=== PATIENT | male | born 1965 | race Two or more races ===

== ENCOUNTER 2023-01-13 21:59 | Inpatient (IN) | payer MEDICAID ==
[~2023-01-13] VITALS: Ht 165.1 cm; Wt 70.3 kg
[~2023-01-13 21:59] MED LIST: ACET1TAB23 PO; ACET500C4 PO; AMOX500C2 PO; ESOM20CA PO; IBUP-1955 PO; NAPR-1192 PO; RISP0.5T65 PO; ZOLP5TAB8 PO
[2023-01-13] MEDS ORDERED: MORPHINE SULFATE INJ 4 MG/ML DISP.SYRIN ONE (22:28)
[2023-01-13] MEDS ORDERED: ONDANSETRON HCL/PF 4 MG/2 ML VIAL ONE (22:28)
[2023-01-13] MEDS ORDERED: ONDANSETRON HCL/PF 4 MG/2 ML VIAL IVP ONE (22:30)
[2023-01-13] MEDS ORDERED: MORPHINE SULFATE INJ 2 MG/ML DISP.SYRIN IV ONE (22:30)
[2023-01-13] MEDS ORDERED: IV NS 0.9% 1,000 ML BAG IV ONE (22:30)
[2023-01-13 22:51] LABS: BASOPHILS % (AUTO) 0.1 % (0.0-2.0); EOSINOPHILS # (AUTO) 0.2 K/uL (0.0-0.7); EOSINOPHILS % (AUTO) 1.3 % (0.0-6.0); HEMATOCRIT 42 % (39-51); HEMOGLOBIN 13.6 g/dL (13.5-17.5); LYMPHOCYTES % (AUTO) 9.2 % (20.0-44.0); MEAN CORPUSCULAR HEMOGLOBIN 30 PG (26.0-33.0); MEAN CORPUSCULAR HGB CONC 33 g/dl (31.0-36.0); MEAN CORPUSCULAR VOLUME 91 fL (80-96); MONOCYTES # (AUTO) 0.5 K/uL (0.1-1.30); MONOCYTES % (AUTO) 4.5 % (2.0-12.0); NEUTROPHILS # (AUTO) 9.6 K/uL (1.8-8.9); NEUTROPHILS % (AUTO) 84.9 % (43.0-81.0); PLATELET COUNT (AUTO) 151 K/uL (150-450); RED BLOOD CELL COUNT(AUTO) 4.61 MIL/uL (4.5-6.0); RED CELL DISTRIBUTION WIDTH 16.1 % (11.5-15.0); WHITE BLOOD COUNT (AUTO) 11.3 K/uL (4.3-11.0)
[2023-01-13 23:06] LABS: CALCIUM, SERUM 8.8 mg/dL (8.5-10.1); CARBON DIOXIDE 24 mmol/L (21-32); CHLORIDE 102 mmol/L (98-107); CREATININE 0.7 mg/dL (0.6-1.3); GLUCOSE 145 mg/dL (74-106); SODIUM SERUM 136 mmol/L (136-145); UREA NITROGEN, BLOOD 16 mg/dL (7-18)
[2023-01-13 23:14] LABS: ALANINE AMINOTRANSFERASE 46 U/L (12-78); ALBUMIN 3.6 g/dL (3.4-5.0); ALKALINE PHOSPHATASE 232 U/L (46-116); ASPARTATE AMINOTRANSFERASE 49 U/L (15-37); BILIRUBIN,DIRECT 0.3 mg/dL (0.0-0.2); BILIRUBIN,TOTAL 0.6 mg/dL (0.2-1.0); LIPASE 52 U/L (16-77); TOTAL PROTEIN, SERUM 8.8 g/dL (6.4-8.2)
[2023-01-14 01:47] LABS: APPEARANCE,URINE CLEAR (CLEAR); BILIRUBIN,URINE NEGATIVE (NEGATIVE); BLOOD, URINE NEGATIVE Ery/uL (NEGATIVE); COLOR,URINE YELLOW (YELLOW); KETONES,URINE NEGATIVE (NEGATIVE); LEUKOCYTE ESTERASE ,URINE NEGATIVE (NEGATIVE); NITRITE, URINE NEGATIVE (NEGATIVE); PH,URINE 5.5 (5.0-8.0); PROTEIN,URINE NEGATIVE (NEGATIVE); UGLUCOSE NEGATIVE (NEGATIVE)
[2023-01-14] MEDS ORDERED: MAGNESIUM HYDROXIDE 30 ML UDC PO PRN (03:30)
[2023-01-14] MEDS ORDERED: MORPHINE SULFATE INJ 2 MG/ML DISP.SYRIN IV PRN (03:30)
[2023-01-14] MEDS: METOCLOPRAMIDE HCL 10 MG/2 ML VIAL IV SCH ×2 (03:30→10:05)
[2023-01-14] MEDS ORDERED: ACETAMINOPHEN 325 MG TABLET PO PRN (03:30)
[2023-01-14] MEDS ORDERED: ONDANSETRON HCL/PF 4 MG/2 ML VIAL IVP PRN (03:30)
[2023-01-14] MEDS ORDERED: Z GUARD REMEDY 4 OZ OINT TP PRN (03:30)
[2023-01-14] MEDS ORDERED: MORPHINE SULFATE INJ 2 MG/ML DISP.SYRIN ONE (06:07)
[2023-01-14 08:15] VITALS: BP 117/76; TEMP 97.6; O2SAT 97
[2023-01-14] MEDS: HEPARIN SODIUM, PORCINE 5000 UNITS/1 ML VIAL SQ SCH ×2 (10:04→21:35)
[2023-01-14] MEDS: PANTOPRAZOLE 40 MG VIAL IV SCH (10:04)
[2023-01-14] MEDS: IV D5/ 0.9% NACL 1,000 ML IV PRN (10:08)
[2023-01-14] MEDS ORDERED: DIATR MEGLU/DIATRIZOATE SODIUM 120 ML BOTTLE (GASTROGRAPHIN) ONE (15:24)
[2023-01-14 16:00] VITALS: BP 124/74; TEMP 98.6; O2SAT 96
[2023-01-14] MEDS ORDERED: LEVOFLOXACIN 500 MG /D5W 100ML 500 MG in PREMIX 1 EA IV SCH (16:00)
[2023-01-14] MEDS: METRONIDAZOLE 500MG/ NS 100ML 500 MG in PREMIX 1 EA IV SCH ×2 (16:32→21:21)
[2023-01-14 20:00] VITALS: BP 123/70; TEMP 98.4; O2SAT 95
[2023-01-14 23:03] VITALS: BP 123/70; TEMP 98.4; O2SAT 95
[2023-01-15] MEDS: IV D5/ 0.9% NACL 1,000 ML IV PRN (02:38)
[2023-01-15] MEDS: METRONIDAZOLE 500MG/ NS 100ML 500 MG in PREMIX 1 EA IV SCH ×2 (05:37→12:13)
[2023-01-15 07:20] LABS: BASOPHILS % (AUTO) 0.4 % (0.0-2.0); EOSINOPHILS # (AUTO) 0.1 K/uL (0.0-0.7); EOSINOPHILS % (AUTO) 1.8 % (0.0-6.0); HEMATOCRIT 38 % (39-51); HEMOGLOBIN 12.7 g/dL (13.5-17.5); LYMPHOCYTES # (AUTO) 1.8 K/uL (0.8-4.8); LYMPHOCYTES % (AUTO) 29.2 % (20.0-44.0); MEAN CORPUSCULAR HEMOGLOBIN 30 PG (26.0-33.0); MEAN CORPUSCULAR HGB CONC 33 g/dl (31.0-36.0); MEAN CORPUSCULAR VOLUME 91 fL (80-96); MONOCYTES % (AUTO) 15.6 % (2.0-12.0); NEUTROPHILS # (AUTO) 3.3 K/uL (1.8-8.9); PLATELET COUNT (AUTO) 132 K/uL (150-450); RED BLOOD CELL COUNT(AUTO) 4.23 MIL/uL (4.5-6.0); WHITE BLOOD COUNT (AUTO) 6.2 K/uL (4.3-11.0)
[2023-01-15 08:00] VITALS: BP 125/81; TEMP 98.4; O2SAT 98
[2023-01-15 08:02] LABS: ALBUMIN 2.8 g/dL (3.4-5.0); BILIRUBIN,DIRECT 0.4 mg/dL (0.0-0.2); BILIRUBIN,TOTAL 1.4 mg/dL (0.2-1.0); CREATININE 0.6 mg/dL (0.6-1.3); MAGNESIUM 2.1 mg/dL (1.8-2.4); PHOSPHORUS 2.7 mg/dL (2.5-4.9); POTASSIUM 3.5 mmol/L (3.5-5.1); TOTAL PROTEIN, SERUM 7.5 g/dL (6.4-8.2)
[2023-01-15] MEDS ORDERED: LEVO500T90 PO (08:36)
[2023-01-15] MEDS: PANTOPRAZOLE 40 MG VIAL IV SCH (10:21)
[2023-01-15] MEDS: HEPARIN SODIUM, PORCINE 5000 UNITS/1 ML VIAL SQ SCH (10:21)
[2023-01-15 16:00] VITALS: BP 110/65; TEMP 98.2; O2SAT 100
== END 2023-01-15 17:10 | disposition home or self-care (01) | DRG 248 ==
LOC: ER 22:01 → UNDOADMIN 01-14 04:39 → TRANSITION 01-14 04:39 → MED 01-14 08:04
PROVIDERS: ADMIT Internal Medicine; ATTEND Internal Medicine
DX: A04.9 Bacterial intestinal infection, unspecified (principal); K56.7 Ileus, unspecified; K74.60 Unspecified cirrhosis of liver; K29.70 Gastritis, unspecified, without bleeding; K80.20 Calculus of gallbladder without cholecystitis without obstruction; N40.0 Benign prostatic hyperplasia without lower urinary tract symptoms
CPT/HCPCS: 36415; 71045-TC; 74250-TC; 80048-TC; 80076-TC; 83690-TC; 83735-TC; 84100-TC; 84484-TC; 85025-TC; 87081-TC; A4216; A4217; A4223; C9113; G0378; J1644; J1956; J2270; J2405; J2765; J7030; J7042; Q9963

== ENCOUNTER 2023-06-23 13:28 | Emergency (ER) | payer MEDICAID ==
[~2023-06-23] VITALS: Ht 167.6 cm; Wt 64.4 kg
[~2023-06-23 13:28] MED LIST changes: -ACET1TAB23 PO; -ACET500C4 PO; -AMOX500C2 PO; -IBUP-1955 PO; +LEVO500T90 PO; -NAPR-1192 PO; -RISP0.5T65 PO; -ZOLP5TAB8 PO
[2023-06-23 13:35] VITALS: TEMP 98.4
[2023-06-23] MEDS ORDERED: ONDANSETRON 4 MG TAB.RAPDIS ONE (13:57)
[2023-06-23] MEDS: ONDANSETRON 4 MG TAB.RAPDIS SL ONE (14:00)
[2023-06-23 14:35] LABS: BASOPHILS # (AUTO) 0.2 K/uL (0.0-0.2); BASOPHILS % (AUTO) 2.9 % (0.0-2.0); EOSINOPHILS # (AUTO) 0.3 K/uL (0.0-0.7); EOSINOPHILS % (AUTO) 4.1 % (0.0-6.0); HEMATOCRIT 37 % (39-51); HEMOGLOBIN 11.5 g/dL (13.5-17.5); LYMPHOCYTES # (AUTO) 2.6 K/uL (0.8-4.8); LYMPHOCYTES % (AUTO) 42.1 % (20.0-44.0); MEAN CORPUSCULAR HEMOGLOBIN 22 PG (26.0-33.0); MEAN CORPUSCULAR HGB CONC 31 g/dl (31.0-36.0); MEAN CORPUSCULAR VOLUME 70 fL (80-96); MONOCYTES # (AUTO) 0.8 K/uL (0.1-1.30); MONOCYTES % (AUTO) 12.8 % (2.0-12.0); NEUTROPHILS # (AUTO) 2.3 K/uL (1.8-8.9); NEUTROPHILS % (AUTO) 38.1 % (43.0-81.0); PLATELET COUNT (AUTO) 359 K/uL (150-450); RED BLOOD CELL COUNT(AUTO) 5.35 MIL/uL (4.5-6.0); RED CELL DISTRIBUTION WIDTH 32.2 % (11.5-15.0); WHITE BLOOD COUNT (AUTO) 6.1 K/uL (4.3-11.0)
[2023-06-23 15:03] LABS: CARBON DIOXIDE 23 mmol/L (21-32); CHLORIDE 101 mmol/L (98-107); CREATININE 0.9 mg/dL (0.6-1.3); GLUCOSE 139 mg/dL (74-106); POTASSIUM 3.9 mmol/L (3.5-5.1); SODIUM SERUM 134 mmol/L (136-145); UREA NITROGEN, BLOOD 11 mg/dL (7-18)
[2023-06-23 15:10] LABS: ALANINE AMINOTRANSFERASE 71 U/L (12-78); ALBUMIN 3.4 g/dL (3.4-5.0); ASPARTATE AMINOTRANSFERASE 45 U/L (15-37); BILIRUBIN,DIRECT 0.4 mg/dL (0.0-0.2); BILIRUBIN,TOTAL 0.9 mg/dL (0.2-1.0)
[2023-06-23] MEDS: IV NS 0.9% 1,000 ML IV ONE (15:50)
[2023-06-23 16:12] LABS: APPEARANCE,URINE CLEAR (CLEAR); BILIRUBIN,URINE NEGATIVE (NEGATIVE); BLOOD, URINE NEGATIVE Ery/uL (NEGATIVE); COLOR,URINE YELLOW (YELLOW); KETONES,URINE NEGATIVE (NEGATIVE); LEUKOCYTE ESTERASE ,URINE NEGATIVE (NEGATIVE); NITRITE, URINE NEGATIVE (NEGATIVE); PROTEIN,URINE NEGATIVE (NEGATIVE); UGLUCOSE NEGATIVE (NEGATIVE); UROBILINOGEN,URINE 0.2 EU/dL (0.2)
[2023-06-23] MEDS ORDERED: ONDA4TAB11 PO (16:24)
[2023-06-23] MEDS ORDERED: DICY20TA11 PO (16:24)
[2023-06-23 17:03] LABS: ALKALINE PHOSPHATASE 222 U/L (46-116)
[2023-06-23 18:04] VITALS: BP 130/68; O2SAT 98
[2023-06-23 18:18] LABS: ANISOCYTOSIS 1+; BAND % (MANUAL) 1 % (0.0-5.0); BASOPHILS % (MANUAL) 1 % (0.0-2.0); EOSINOPHILS % (MANUAL) 4 % (0-4); LYMPHOCYTES % (MANUAL) 31 % (16-48); MONOCYTES % (MANUAL) 9 % (0-11.0); NEUTROPHILS % (MANUAL) 54 (42-76); PLATELET ESTIMATE ADEQUATE
[2023-06-23 18:19] LABS: TARGET CELLS RARE; TEAR DROP CELLS RARE
[2023-06-27] MEDS ORDERED: RIFA550T PO (08:49)
[2023-06-27] MEDS ORDERED: LACT10SO58 PO (08:49)
== END 2023-06-23 17:15 | disposition home or self-care (01) ==
LOC: ER 13:38
DX: R53.1 Weakness (principal); R11.0 Nausea; F41.9 Anxiety disorder, unspecified; G47.00 Insomnia, unspecified; Z87.09 Personal history of other diseases of the respiratory system; Z87.19 Personal history of other diseases of the digestive system; Z86.79 Personal history of other diseases of the circulatory system
CPT/HCPCS: 99284; 96360; 93005; 85025; 80048; 80076; 81003; 36415; 84484; 85007; J7030; Q0162

== ENCOUNTER 2023-06-24 07:59 | Inpatient (IN) | payer MEDICAID ==
[~2023-06-24] VITALS: Ht 165.1 cm; Wt 59.4 kg
[~2023-06-24 07:59] MED LIST changes: +DICY20TA11 PO; +ONDA4TAB11 PO
[2023-06-24] MEDS: IV NS 0.9% 1,000 ML BAG IV ONE (08:16)
[2023-06-24 08:45] LABS: BASOPHILS # (AUTO) 0.1 K/uL (0.0-0.2); BASOPHILS % (AUTO) 1.4 % (0.0-2.0); EOSINOPHILS # (AUTO) 0.3 K/uL (0.0-0.7); EOSINOPHILS % (AUTO) 3.6 % (0.0-6.0); HEMATOCRIT 37 % (39-51); HEMOGLOBIN 11.4 g/dL (13.5-17.5); LYMPHOCYTES # (AUTO) 2.1 K/uL (0.8-4.8); LYMPHOCYTES % (AUTO) 26.2 % (20.0-44.0); MEAN CORPUSCULAR HEMOGLOBIN 22 PG (26.0-33.0); MEAN CORPUSCULAR HGB CONC 31 g/dl (31.0-36.0); MEAN CORPUSCULAR VOLUME 69 fL (80-96); MONOCYTES # (AUTO) 0.8 K/uL (0.1-1.30); MONOCYTES % (AUTO) 10.2 % (2.0-12.0); NEUTROPHILS # (AUTO) 4.6 K/uL (1.8-8.9); NEUTROPHILS % (AUTO) 58.6 % (43.0-81.0); PLATELET COUNT (AUTO) 369 K/uL (150-450); RED CELL DISTRIBUTION WIDTH 31.6 % (11.5-15.0); WHITE BLOOD COUNT (AUTO) 7.8 K/uL (4.3-11.0)
[2023-06-24 08:57] LABS: INR 1.26 (0.91-1.10); PARTIAL THROMBOPLASTIN TIME 33.1 SEC (24.3-34.3); PROTHROMBIN TIME 13.2 SECS (9.2-11.1)
[2023-06-24 09:01] LABS: SERUM AMMONIA 106 umol/L (11-32)
[2023-06-24 09:08] LABS: ALANINE AMINOTRANSFERASE 64 U/L (12-78); ALBUMIN 3.3 g/dL (3.4-5.0); ALKALINE PHOSPHATASE 188 U/L (46-116); ASPARTATE AMINOTRANSFERASE 44 U/L (15-37); BILIRUBIN,DIRECT 0.4 mg/dL (0.0-0.2); CALCIUM, SERUM 8.7 mg/dL (8.5-10.1); CARBON DIOXIDE 20 mmol/L (21-32); CHLORIDE 102 mmol/L (98-107); CREATININE 0.8 mg/dL (0.6-1.3); GLUCOSE 110 mg/dL (74-106); POTASSIUM 4.1 mmol/L (3.5-5.1); SODIUM SERUM 134 mmol/L (136-145); TOTAL PROTEIN, SERUM 9.8 g/dL (6.4-8.2); UREA NITROGEN, BLOOD 17 mg/dL (7-18)
[2023-06-24 09:15] LABS: THYROID STIMULATING HORMONE 1.425 uIU/mL (0.358-3.74)
[2023-06-24 09:19] LABS: ACETAMINOPHEN <10 ug/ml (10-30); ALCOHOL, BLOOD < 3 mg/dL (0-10); SALICYLATE < 2.3 mg/dL (2.8-20.0)
[2023-06-24 09:20] LABS: LACTIC ACID 2.1 mmol/L (0.4-2.0)
[2023-06-24] MEDS ORDERED: LACTULOSE 10 G/15 ML UDC (PYXIS) ONE (09:40)
[2023-06-24] MEDS: LACTULOSE 10 G/15 ML UDC (PYXIS) PO ONE (09:42)
[2023-06-24 12:11] LABS: APPEARANCE,URINE Clear (CLEAR); BILIRUBIN,URINE Negative (NEGATIVE); BLOOD, URINE Negative Ery/uL (NEGATIVE); COLOR,URINE YELLOW (YELLOW); KETONES,URINE 15 mg/dL (NEGATIVE); LEUKOCYTE ESTERASE ,URINE Negative (NEGATIVE); NITRITE, URINE Negative (NEGATIVE); PROTEIN,URINE Negative (NEGATIVE); UGLUCOSE Negative (NEGATIVE); UROBILINOGEN,URINE 0.2 EU/dL (0.2)
[2023-06-24 12:21] LABS: AMPHETAMINE, URINE NEGATIVE (NEGATIVE); BARBITURATE, URINE NEGATIVE (NEGATIVE); BENZODIAZEPINE, URINE NEGATIVE (NEGATIVE); CANNABINOID, URINE NEGATIVE (NEGATIVE); COCCAINE, URINE NEGATIVE (NEGATIVE); OPIATE, URINE NEGATIVE (NEGATIVE); PHENCYCLIDINE SCREEN,URINE NEGATIVE (NEGATIVE)
[2023-06-24] MEDS: IV D5/0.45 NACL 1,000 ML IV PRN (15:11)
[2023-06-24] MEDS: Folic acid 1 MG in IV D5W 50 ML IV SCH (15:27)
[2023-06-24] MEDS: Thiamine 100 MG in IV D5W 50 ML IV SCH (15:27)
[2023-06-24] MEDS ORDERED: ACETAMINOPHEN 325 MG TABLET PO PRN (15:30)
[2023-06-24] MEDS ORDERED: ONDANSETRON HCL/PF 4 MG/2 ML VIAL IV PRN (15:30)
[2023-06-24] MEDS: LACTULOSE 10 G/15 ML UDC (PYXIS) PO SCH (15:40)
[2023-06-24] MEDS: PANTOPRAZOLE 40 MG VIAL IV SCH (15:40)
[2023-06-24 16:00] VITALS: BP 118/74; TEMP 98.4; O2SAT 99
[2023-06-24] MEDS: RIFAXIMIN 550 MG TABLET PO SCH (16:26)
[2023-06-24 20:00] VITALS: BP 101/59; TEMP 98.6; O2SAT 99
[2023-06-25] VITALS: BP_SYST 134; BP_SYST 97; BP_DIAS 63; BP_DIAS 73; TEMP 97.7; TEMP 98.6; O2SAT 100; O2SAT 97
[2023-06-25 04:00] VITALS: BP 116/78; TEMP 98.1; O2SAT 100
[2023-06-25 08:00] VITALS: BP 106/72; TEMP 98.1; O2SAT 100
[2023-06-25 08:18] LABS: BASOPHILS # (AUTO) 0.1 K/uL (0.0-0.2); BASOPHILS % (AUTO) 1.8 % (0.0-2.0); EOSINOPHILS # (AUTO) 0.4 K/uL (0.0-0.7); HEMATOCRIT 33 % (39-51); HEMOGLOBIN 10.4 g/dL (13.5-17.5); LYMPHOCYTES # (AUTO) 1.9 K/uL (0.8-4.8); LYMPHOCYTES % (AUTO) 32.6 % (20.0-44.0); MEAN CORPUSCULAR HEMOGLOBIN 22 PG (26.0-33.0); MEAN CORPUSCULAR HGB CONC 32 g/dl (31.0-36.0); MEAN CORPUSCULAR VOLUME 70 fL (80-96); MONOCYTES # (AUTO) 0.9 K/uL (0.1-1.30); MONOCYTES % (AUTO) 15.9 % (2.0-12.0); NEUTROPHILS # (AUTO) 2.5 K/uL (1.8-8.9); NEUTROPHILS % (AUTO) 42.7 % (43.0-81.0); PLATELET COUNT (AUTO) 290 K/uL (150-450); RED BLOOD CELL COUNT(AUTO) 4.67 MIL/uL (4.5-6.0); RED CELL DISTRIBUTION WIDTH 31.8 % (11.5-15.0); WHITE BLOOD COUNT (AUTO) 5.9 K/uL (4.3-11.0)
[2023-06-25 08:20] LABS: ALBUMIN 2.7 g/dL (3.4-5.0); BILIRUBIN,TOTAL 0.9 mg/dL (0.2-1.0); CALCIUM, SERUM 8.2 mg/dL (8.5-10.1); CREATININE 0.8 mg/dL (0.6-1.3); POTASSIUM 3.8 mmol/L (3.5-5.1); TOTAL PROTEIN, SERUM 8.5 g/dL (6.4-8.2)
[2023-06-25 09:05] LABS: THYROID STIMULATING HORMONE 1.533 uIU/mL (0.358-3.74)
[2023-06-25] MEDS: THIAMINE HCL 100 MG TABLET PO SCH (12:29)
[2023-06-25] MEDS: FOLIC ACID 1 MG TABLET PO SCH (12:29)
[2023-06-25 15:28] LABS: BAND % (MANUAL) 2 % (0.0-5.0)
[2023-06-25 15:29] LABS: EOSINOPHILS % (MANUAL) 4 % (0-4); LYMPHOCYTES % (MANUAL) 36 % (16-48); MONOCYTES % (MANUAL) 12 % (0-11.0); NEUTROPHILS % (MANUAL) 46 (42-76); PLATELET ESTIMATE ADEQUATE
[2023-06-25 16:00] VITALS: BP 110/70; TEMP 97.9; O2SAT 99
[2023-06-25 20:00] VITALS: BP 114/69; TEMP 98.1; O2SAT 100
[2023-06-26 06:59] LABS: BASOPHILS # (AUTO) 0.1 K/uL (0.0-0.2); BASOPHILS % (AUTO) 1.9 % (0.0-2.0); EOSINOPHILS # (AUTO) 0.5 K/uL (0.0-0.7); HEMATOCRIT 31 % (39-51); HEMOGLOBIN 9.8 g/dL (13.5-17.5); LYMPHOCYTES % (AUTO) 33.7 % (20.0-44.0); MEAN CORPUSCULAR HEMOGLOBIN 22 PG (26.0-33.0); MEAN CORPUSCULAR HGB CONC 31 g/dl (31.0-36.0); MEAN CORPUSCULAR VOLUME 70 fL (80-96); MONOCYTES # (AUTO) 0.9 K/uL (0.1-1.30); MONOCYTES % (AUTO) 15.3 % (2.0-12.0); NEUTROPHILS # (AUTO) 2.4 K/uL (1.8-8.9); NEUTROPHILS % (AUTO) 40.1 % (43.0-81.0); PLATELET COUNT (AUTO) 247 K/uL (150-450); RED BLOOD CELL COUNT(AUTO) 4.49 MIL/uL (4.5-6.0); RED CELL DISTRIBUTION WIDTH 31.9 % (11.5-15.0)
[2023-06-26 07:38] LABS: CALCIUM, SERUM 7.5 mg/dL (8.5-10.1); CREATININE 0.6 mg/dL (0.6-1.3); POTASSIUM 3.6 mmol/L (3.5-5.1)
[2023-06-26 08:00] VITALS: BP 109/79; TEMP 98; O2SAT 100
[2023-06-26] MEDS: PANTOPRAZOLE 40 MG TABLET.DR PO SCH (08:17)
[2023-06-26 11:09] LABS: HBSAG SCREEN Negative (Negative); HEPATITIS A AB, IgM Negative (Negative); HEPATITIS B CORE AB, IgM Negative (Negative)
[2023-06-26 11:51] LABS: ANISOCYTOSIS 1+; BASOPHILS % (MANUAL) 0 % (0.0-2.0); EOSINOPHILS % (MANUAL) 16 % (0-4); LYMPHOCYTES % (MANUAL) 33 % (16-48); MONOCYTES % (MANUAL) 10 % (0-11.0); NEUTROPHILS % (MANUAL) 41 (42-76); OVALOCYTES 1+; PLATELET ESTIMATE ADEQUATE
[2023-06-26] MEDS: BISACODYL SUPP (10 MG) 10 MG/SUPP.RECT SUPP.RECT RC ONE (13:00)
[2023-06-26 16:00] VITALS: BP 112/78; TEMP 97.6; O2SAT 100
[2023-06-26] MEDS: HYDROCODONE/APAP 5/325MG TABLET PO PRN (17:09)
[2023-06-26 20:00] VITALS: BP 129/85; TEMP 97.9; O2SAT 100
[2023-06-27 07:30] LABS: CALCIUM, SERUM 7.7 mg/dL (8.5-10.1); CREATININE 0.6 mg/dL (0.6-1.3); POTASSIUM 3.8 mmol/L (3.5-5.1)
[2023-06-27 08:00] VITALS: BP 110/69; TEMP 97.7; O2SAT 99
[2023-06-27] MEDS ORDERED: LACT10SO58 PO (08:49)
[2023-06-27] MEDS ORDERED: RIFA550T PO (08:49)
== END 2023-06-27 14:05 | disposition home or self-care (01) | DRG 280 ==
LOC: ER 08:06 → MED 14:07 → TELE 15:55 → MED 06-25 10:54
PROVIDERS: ADMIT Internal Medicine; ATTEND Internal Medicine
DX: K76.82 Hepatic encephalopathy (principal); K70.30 Alcoholic cirrhosis of liver without ascites; G93.41 Metabolic encephalopathy; K80.20 Calculus of gallbladder without cholecystitis without obstruction; N40.0 Benign prostatic hyperplasia without lower urinary tract symptoms; Z59.00 Homelessness unspecified; F10.21 Alcohol dependence, in remission; K29.70 Gastritis, unspecified, without bleeding
CPT/HCPCS: 36415; 70450-TC; 71045-TC; 80048-TC; 80053-TC; 80076-TC; 82140-TC; 83605-TC; 83735-TC; 84443-TC; 84484-TC; 85025-TC; 85730-TC; 87040-TC; 87086-TC; A4223; A4349; C9113; G0378; G0480; J3411; J3490; J7030; J7050; J7060